=== PATIENT | female | born 1960 | race Two or more races ===

== ENCOUNTER 2019-02-11 16:40 | Emergency (ER) | payer OTHER ==
[~2019-02-11] VITALS: Ht 170.2 cm; Wt 77.1 kg
[2019-02-11] MEDS: MECLIZINE HCL 25 MG TABLET PO ONE (17:08)
--- NOTE | 2019-02-11 17:12 | NUR ---
PT IS IN ROOM #1B. DR VALENTINE EVALUATED THE PT.
[2019-02-11] MEDS ORDERED: MECLIZINE HCL 25 MG TABLET ONE (17:17)
--- NOTE | 2019-02-11 17:46 | NUR ---
PT WAS D/C TO HOME AFTER DR VALENTINE EVALUATION. D/C INSTRUCTIONS GIVEN TO THE PT BY DR VALENTINE.
[2019-02-11 17:47] VITALS: BP 125/71
== END 2019-02-11 17:48 | disposition home or self-care (01) ==
LOC: ER 16:40
DX: H81.10 Benign paroxysmal vertigo, unspecified ear (principal)
CPT/HCPCS: 93005; A4663; J8597

== ENCOUNTER 2019-02-21 19:19 | Emergency (ER) | payer OTHER ==
[~2019-02-21] VITALS: Ht 165.1 cm; Wt 74.8 kg
--- NOTE | 2019-02-21 19:53 | NUR ---
Dr. Gonzales at bedside for MSE.
[2019-02-21] MEDS ORDERED: ONDANSETRON 4 MG/2 ML VIAL IV ONE (20:00)
[2019-02-21] MEDS ORDERED: LORAZEPAM 2 MG/1 ML VIAL IV ONE (20:00)
[2019-02-21] MEDS ORDERED: ONDANSETRON 4 MG/2 ML VIAL ONE (20:11)
[2019-02-21 20:12] LABS: BASOPHILS # (AUTO) 0.1 K/uL (0.0-8.0); BASOPHILS % (AUTO) 0.7 % (0.0-2.0); EOSINOPHILS # (AUTO) 0.1 K/uL (0.0-0.7); EOSINOPHILS % (AUTO) 1.5 % (0.0-7.0); HEMATOCRIT 34.8 % (31.2-41.9); HEMOGLOBIN 11.7 g/dL (10.9-14.3); LYMPHOCYTES # (AUTO) 3.3 K/uL (20.0-40.0); LYMPHOCYTES % (AUTO) 38.4 % (20.5-51.5); MEAN CORPUSCULAR HEMOGLOBIN 28.9 uug (24.7-32.8); MEAN CORPUSCULAR HGB CONC 34 g/dL (32.3-35.6); MEAN CORPUSCULAR VOLUME 85.9 fL (75.5-95.3); MONOCYTES # (AUTO) 0.7 K/uL (2.0-10.0); NEUTROPHILS # (AUTO) 4.4 K/uL (1.8-8.9); NEUTROPHILS % (AUTO) 51.4 % (38.5-71.5); PLATELET COUNT (AUTO) 312 K/uL (179-408); RED BLOOD CELL COUNT(AUTO) 4.05 MIL/uL (3.63-4.92); WHITE BLOOD COUNT (AUTO) 8.6 K/uL (3.8-11.8)
[2019-02-21] MEDS ORDERED: LORAZEPAM 2 MG/1 ML VIAL ONE (20:12)
[2019-02-21 20:21] LABS: CREATININE 0.8 mg/dL (0.6-1.3); POTASSIUM 3.6 mmol/L (3.5-5.1)
[2019-02-21 20:26] LABS: BILIRUBIN,DIRECT 0.1 mg/dL (0.0-0.2); BILIRUBIN,TOTAL 0.4 mg/dL (0.2-1.0); TOTAL PROTEIN, SERUM 7.3 g/dL (6.4-8.2)
[2019-02-21] MEDS ORDERED: MECLIZINE HCL 25 MG TABLET PO ONE (21:00)
--- NOTE | 2019-02-21 21:11 | NUR ---
Patient discharged to home in stable conditon. Written and verbal after care instructions given. Patient verbalizes understanding of instructions. Patient ambulated out of ER with steady gait, no acute signs of distress, VSS, all belongings taken, IV site discontinued, to be driven home via private vehicle by daughter.
[2019-02-21] MEDS ORDERED: MECLIZINE HCL 25 MG TABLET ONE (21:12)
[2019-02-21 21:14] VITALS: BP 125/77
== END 2019-02-21 21:24 | disposition home or self-care (01) ==
LOC: ER 19:22
DX: I10 Essential (primary) hypertension (principal); R42 Dizziness and giddiness; R11.0 Nausea; E78.5 Hyperlipidemia, unspecified; F17.200 Nicotine dependence, unspecified, uncomplicated; Z90.49 Acquired absence of other specified parts of digestive tract
CPT/HCPCS: 36415; 80048; 80076; 83690; 85025; 85730; 93005; 96374; 96375; 99284; J2060; J2405; A4663; J8597

== ENCOUNTER 2022-09-14 16:52 | Emergency (ER) | payer BC, OTHER ==
[~2022-09-14] VITALS: Ht 167.6 cm; Wt 79.4 kg
--- NOTE | 2022-09-14 17:15 | NUR ---
Patient was triaged and brought back to the ER waiting room, the ER is saturated and there are no beds available.
--- NOTE | 2022-09-14 18:45 | NUR ---
Blood specimens drawn by medical referral coordinator at triage area and pt brought back to waiting room.
[2022-09-14 18:52] LABS: HEMATOCRIT 35.9 % (31.2-41.9); MEAN CORPUSCULAR HEMOGLOBIN 28.9 uug (24.7-32.8); MEAN CORPUSCULAR VOLUME 86.8 fL (75.5-95.3); PLATELET COUNT (AUTO) 313 K/uL (179-408)
[2022-09-14 19:10] LABS: CREATININE 0.8 mg/dL (0.6-1.3); POTASSIUM 3.9 mmol/L (3.5-5.1)
[2022-09-14 19:21] LABS: BILIRUBIN,TOTAL 0.5 mg/dL (0.2-1.0); TOTAL PROTEIN, SERUM 7.7 g/dL (6.4-8.2)
--- NOTE | 2022-09-14 22:10 | NUR ---
Patient was called to have vital re check and have EKG done but patient was not present in the waiting room or outside of ER.
--- NOTE | 2022-09-14 22:45 | NUR ---
Patient was called to have vitals signs re taken and have EKG done but was not present in the waiting room or outside of ER.
--- NOTE | 2022-09-14 23:30 | NUR ---
Patient was called to be placed in room but was not present in the waiting room or outside of ER. Patient eloped ER.
== END 2022-09-14 23:30 | disposition left against medical advice (07) ==
LOC: ER 16:52
DX: R03.0 Elevated blood-pressure reading, without diagnosis of hypertension (principal); Z53.20 Procedure and treatment not carried out because of patient's decision for unspecified reasons
CPT/HCPCS: 36415; 84484; 85025; 93005; A4663